=== PATIENT | male | born 1980 | race Caucasian/White ===

== ENCOUNTER 2018-03-26 16:27 | Emergency (ER) | payer OTHER ==
[~2018-03-26] VITALS: Ht 177.8 cm; Wt 84.0 kg
[~2018-03-26 16:27] MED LIST: NO HOME MEDS
[2018-03-26 16:34] VITALS: BP 111/80
== END 2018-03-26 18:56 | disposition home or self-care (01) ==
LOC: ER 16:28
DX: R76.11 Nonspecific reaction to tuberculin skin test without active tuberculosis (principal); F11.90 Opioid use, unspecified, uncomplicated
CPT/HCPCS: 71045; 99283